=== PATIENT | male | born 1960 | race African-American/Black ===

== ENCOUNTER 2019-03-11 09:55 | Inpatient (IN) ==
[2019-03-11 11:32] LABS: BASO# 0.01 X1000 (0.0-0.2); BASO% 0.4 % (0.0-0.8); EOS# 0.04 X1000 (0.0-0.7); EOS% 1.4 % (0.0-10.0); HEMATOCRIT 35.1 % (42.0-52.0); HEMOGLOBIN 11.4 g/dL (14.0-18.0); LYMPH# 1.55 X1000 (1.2-3.4); LYMPH% 55.6 % (20.5-51.1); MCH 33.1 PG (27-31); MCHC 32.5 g/dL (33-37); MONO# 0.27 X1000 (0.11-0.59); MONO% 9.7 % (1.7-9.3); NEUT# 0.92 X1000 (1.4-6.5); NEUT% 32.9 % (42.2-75.2); PLT 74 X1000 (130-400); RBC 3.44 XMIL (4.7-6.1); RDW 12.6 % (11.5-14.5); WBC 2.79 X1000 (4.8-10.8)
--- NOTE | 2019-03-11 11:37 | Diag Imaging Result Doc PS360 ---
EXAM: CT HEAD W/O CONTRAST 03/11/2019 HISTORY: Altered Mental Status TECHNIQUE: This exam was performed using automated exposure control, adjustment of mA or kV according to patient size, and/or use of iterative reconstruction technique. COMMENT: There is mild generalized cerebral atrophy. There is a focal area of lucency in the mid cheryl. There is some patchy lucency in the periventricular white matter particularly adjacent to the frontal horn on the left. Compared to 06/16/2017 and these abnormalities were not present previously. There is no evidence of bleed or abnormal extra-axial fluid collection. The calvarium is intact. There is fluid in the left sphenoid sinus and some mucosal thickening is present in ethmoid air cells bilaterally. IMPRESSION: Worsened chronic ischemic changes including a lacune in the cheryl. Surrounding the chronic changes further evaluation with MRI may be desirable. Electronically signed by Ariel Ken 03/11/2019 11:34 AM
[2019-03-11 12:00] LABS: AGAP 10; ALB/GLOB RATIO 1.5; ALBUMIN 3.8 g/dL (3.5-5.0); ALKALINE PHOSPHATASE 120 U/L (32-122); BUN 5 mg/dL (8-22); CALCIUM 9.2 mg/dL (8.8-10.2); CHLORIDE 99 mmol/L (98-107); COSMO 279; CREATININE 0.7 mg/dL (0.7-1.2); ESTIMATED GFR > 60; GLUCOSE 133 mg/dL (70-104); GOT 38 U/L (10-34); GPT 18 U/L (10-44); POTASSIUM 3.9 mmol/L (3.5-5.1); SODIUM 140 mmol/L (136-145); TCO2 31 mmol/L (25-35); TOTAL BILIRUBIN 1.03 mg/dL (0.20-1.00); TOTAL PROTEIN 6.4 g/dL (6.3-8.3)
--- NOTE | 2019-03-11 13:16 | Diag Imaging Result Doc PS360 ---
EXAM: CHEST-PORTABLE HISTORY: new admit TECHNIQUE: Single view COMPARISON: 10/18/2018 FINDINGS: The lungs are hyperexpanded. The heart is not enlarged. The vessels are small. There are no infiltrates. No effusion identified. IMPRESSION: Emphysema Electronically signed by Rajan Mo 03/11/2019 1:13 PM
[2019-03-11 13:59] LABS: URINE SOURCE CLEAN CATCH
--- NOTE | 2019-03-11 14:03 | Diag Imaging Result Doc PS360 ---
EXAM: MRI BRAIN W/WO CONTRAST 03/11/2019 HISTORY: ams TECHNIQUE: T1 sagittal, axial and post gadolinium-enhanced axial with coronal reformation, axial T2, FLAIR, DWI and coronal gradient echo. COMMENT: There is a lacune present in the cheryl measuring over 12 mm in size in the sagittal dimension. There are patchy periventricular white matter changes and punctate areas of increased T2-weighted signal intensity in the subcortical white matter particularly in the posterior frontal and parietal convexities on the left. There is no evidence of bleed or abnormal extra-axial fluid collection. Compared to the previous study of 02/02/2015 the pontine lacune was not previously present and the periventricular and subcortical white matter changes are worse. There is no evidence of restricted diffusion. There is mucosal thickening and enhancement present in both maxillary sinuses and the right maxillary sinus is nearly completely opacified. There is some mucosal thickening in some of the anterior ethmoid air cells bilaterally. IMPRESSION: Chronic ischemic changes which have worsened since 02/02/2015. Bilateral maxillary sinusitis. Electronically signed by Ariel Ken 03/11/2019 2:00 PM
--- NOTE | 2019-03-11 14:05 | Diag Imaging Result Doc PS360 ---
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 There is no evidence of aneurysm. There is no evidence of major branch occlusion. There is better demonstration of more peripheral branches in the distribution of the left middle cerebral compared to the right. IMPRESSION: No evidence of aneurysm or major branch occlusion. Electronically signed by Ariel Ken 03/11/2019 2:03 PM
[2019-03-11 14:06] LABS: BILIRUBIN URINE NEGATIVE (NEGATIVE); BLOOD URINE NEGATIVE (NEGATIVE); COLOR YELLOW; GLUCOSE URINE NEGATIVE (NEGATIVE); KETONE URINE NEGATIVE (NEGATIVE); LEUKOCYTES URINE NEGATIVE (NEGATIVE); NITRITE URINE NEGATIVE (NEGATIVE); PROTEIN URINE NEGATIVE (NEGATIVE); TURBIDITY URINE CLEAR (CLEAR); UROBILINOGEN URINE 3 mg/dL (NORMAL)
[2019-03-11 14:08] LABS: UR EPITHELIAL CELLS <10 /HPF (<10); URINE BACTERIA NEGATIVE /HPF; URINE RBC <10 /HPF (<10); URINE WBC <10 /HPF (<10)
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
[2019-03-11 14:20] LABS: UR AMPHETAMINES QUAL NONE DETECTED (NONE DETECT); UR BARBITUATES QUAL NONE DETECTED (NONE DETECT); UR BENZODIAZEPIN QUAL NONE DETECTED (NONE DETECT); UR CANNABINOIDS QUAL PRESUMPTIVE POSITIVE (NONE DETECT); UR COCAINE QUAL NONE DETECTED (NONE DETECT); UR METHADONE QUAL NONE DETECTED (NONE DETECT); UR OPIATES QUAL NONE DETECTED (NONE DETECT); UR OXYCODONE QUAL NONE DETECTED (NONE DETECT); UR PCP QUAL NONE DETECTED (NONE DETECT)
[2019-03-11 14:31] LABS: URINE CASTS NONE SEEN; URINE CRYSTALS NONE SEEN; URINE SMALL ROUND CELLS TRANS PRESENT; URINE YEAST NONE SEEN
[2019-03-11] MEDS ORDERED: M.V.I.-12 10 ML, FOLIC ACID 1 MG, MAGNESIUM SULFATE 1 GM, THIAMINE 100 MG in NS 1,000 ML IV ONE (14:39)
[2019-03-11] MEDS: LIBRIUM PO SCH ×2 (15:30→21:00)
[2019-03-11] MEDS ORDERED: ATIVAN IV PRN (17:21)
[2019-03-11] MEDS ORDERED: ZOFRAN IV PRN (17:21)
[2019-03-11] MEDS: NS 1,000 ML IV SCH (18:09)
[2019-03-11] MEDS: HUMALOG SUBQ SCH ×2 (18:10→21:59)
[2019-03-11 19:04] LABS: AGAP 8; ALB/GLOB RATIO 1.4; ALBUMIN 3.3 g/dL (3.5-5.0); ALKALINE PHOSPHATASE 90 U/L (32-122); BUN 5 mg/dL (8-22); CALCIUM 8.4 mg/dL (8.8-10.2); CHLORIDE 101 mmol/L (98-107); COSMO 275; CREATININE 0.6 mg/dL (0.7-1.2); ESTIMATED GFR > 60; GLUCOSE 144 mg/dL (70-104); GOT 35 U/L (10-34); GPT 17 U/L (10-44); POTASSIUM 3.6 mmol/L (3.5-5.1); SODIUM 138 mmol/L (136-145); TCO2 29 mmol/L (25-35); TOTAL BILIRUBIN 0.84 mg/dL (0.20-1.00); TOTAL PROTEIN 5.7 g/dL (6.3-8.3)
--- NOTE | 2019-03-11 19:49 | HISTORY AND PHYSICAL ---
PRIMARY CARE PROVIDER: Edward Clinton MD CHIEF COMPLAINT: Audiovisual hallucinations. HISTORY OF PRESENT ILLNESS: Mr. Bauer is a 58-year-old male who carries a past medical history of chronic alcoholism, coronary artery disease, diabetes mellitus type 2, hyperlipidemia. He reported his last drink was a pint of vodka yesterday around 1700. He reports he wants help for his alcohol. He states that his told him that he saw people walking down the street last night when no one was there. He was sitting on the front porch talking to a nephew that was not there either. His is currently not at the bedside at this time. She went to go get dinner and take her blood pressure medications. He reports he has had some medication changes. He does not know what they are. He reports he has been taken off some and back on some. He has had some nausea, 4 episodes of vomiting over the last 2 weeks. They have all been liquid. He has had the shakes and chills. No appetite. He reports he does smoke marijuana for that. Workup in the ED was essentially unremarkable. Head CT did show worsening chronic ischemic changes. Recommended evaluation with MRI. Brain MRI just showed chronic ischemic changes that have worsened since February 2015 and bilateral maxillary sinusitis. The patient has been admitted to the medical telemetry floor for altered mental status, possible alcohol withdrawal. We ruled out CVA. PAST MEDICAL HISTORY: Coronary artery disease, diabetes mellitus, hyperlipidemia, chronic alcoholism. PAST SURGICAL HISTORY: Coronary stent. ALLERGIES: No known drug allergies. HOME MEDICATIONS: 1. Aspirin 81 mg p.o. daily. 2. Lipitor 40 mg p.o. daily. 3. Cardizem CD 360 mg p.o. daily. 4. Fenofibrate 130 mg p.o. daily. 5. Gabapentin 300 mg p.o. b.i.d. 6. Isosorbide Mononitrate 60 mg p.o. daily. 7. Metoprolol 25 mg p.o. daily. 8. Prilosec 40 mg p.o. daily. 9. Zoloft 100 mg p.o. daily. 10. Flomax 0.4 mg p.o. b.i.d. 11. Trazodone 50 mg p.o. at bedtime, folic acid 1 mg p.o. daily, multivitamin 1 tab p.o. daily. SOCIAL HISTORY: The patient is a half-pack taper per day smoker. He has done so for 30+ years. He does smoke marijuana on occasion for appetite. He drinks a pint of whiskey. He denies any other illicit drug use. FAMILY HISTORY: No coronary disease. REVIEW OF SYSTEMS: Twelve-point review of systems completely negative except for those mentioned in HPI. PHYSICAL EXAMINATION: VITAL SIGNS: Temperature is 99.2 degrees, heart rate 106, respirations 18, blood pressure 131/91. O2 is 99% on room air. GENERAL: Mr. Bauer is a cooperative 58-year-old male who is sitting up in the bed in no acute distress. HEENT: Atraumatic, normocephalic. PERRL. NECK: Supple trachea midline. CARDIOVASCULAR: S1, S2 appreciated. RESPIRATORY: Lung sounds restrictive, but no wheezes, rales, or rhonchi. GASTROINTESTINAL: Abdomen soft, nontender, nondistended. Positive bowel sounds 4 quadrants. SKIN: Appears to be warm, dry, and intact. NEUROLOGIC: He is awake. He is alert. He is oriented x4. He follows commands. He moves all extremities. He is answering questions appropriately. DIAGNOSTIC DATA: Per HPI. LABORATORY DATA: White count 2, hemoglobin and hematocrit 11 and 35, platelet count 74,000. Sodium 140, potassium 3.9, BUN 5, creatinine 0.7, blood glucose is 133, T bilirubin 1.03, AST 38 urinalysis is clear. Toxicology screen positive for cannabinoids. Serum alcohol level was 0. ASSESSMENT AND PLAN: 1. Cerebrovascular accident ruled out with a head CT and brain MRI. 2. Altered mental status. Reported hallucinations visual and auditory, possible alcohol withdrawal versus Wernicke encephalopathy. We will monitor him closely. We will place him on Librium and p.r.n. Ativan. Frequent neurological checks. Monitor him for delirium tremens, banana bag daily. Electrolytes are currently stable. 3. Nausea and vomiting. We will continue with antiemetics. 4. Diabetes mellitus type 2. The patient is diet controlled. We will place him on sliding scale and pattern blood sugars. 5. Hyperlipidemia. Continue home regimen. 6. Coronary artery disease status post stenting. Patient is not complaining of any chest pain. 7. We will check vitamin B12, folate, magnesium, phosphorus, continue with banana bag with folic acid and multivitamin and thiamine daily. A full liquid diet for now. 8. Further recommendation to follow physician evaluation, laboratory and diagnostic data. Dictated by MANDY Sandoval for Fabian Hancock MD cc: MD Edward Sanchez MD
--- NOTE | 2019-03-11 20:54 | HISTORY AND PHYSICAL ---
ADDENDUM: I have seen and examined Mr. Bauer today. Mr. Bauer presented because of altered mental status associated with hallucination, visual and auditory. He said this morning he woke up and he was just talking to his cousin, addressing his cousin when he was not there, and he was seeing people on the street that were not there. He came to the emergency room where he was evaluated. Imaging studies have been done including a CT scan of the head, which shows worsening chronic ischemic changes including lacunae in the cheryl. An MRI of the brain showed chronic ischemic changes, which have worsened, bilateral maxillary sinusitis, and MRA showed no evidence of aneurysm or major branch occlusion. PHYSICAL EXAMINATION: VITAL SIGNS: Shows a blood pressure of 131/91, pulse 103, respirations 18, temperature is 99.2 degrees. GENERAL: Mr. Bauer is breathing ambient air. He Looks very fidgety with residual tremors. Otherwise, this physical exam only shows remarkably an undernourished gentleman with a BMI of 17.5. ADMISSION DIAGNOSES: 1. Altered mental status associated with acute hallucinations, most likely related to alcohol withdrawal with cannabis toxicity. 2. Alcohol use and abuse. 3. Pancytopenia of unclear etiology presumably from underlying alcohol and possible cirrhosis of the liver. 4. Clinical volume depletion. 5. Chronic ischemic microvascular changes in the brain noted. PLAN: We are going to admit Mr. Bauer, continue with a banana bag and vitamin replacement, hydrate him overnight, get physical therapy to evaluate him. He has been started on Librium and Ativan p.r.n. We will re-evaluate him in the morning and make further recommendations. Please refer to the details of the history and physical that has been dictated in the chart by the [employer]. cc: Fabian Hancock MD [facility], [place]
[2019-03-12] MEDS: LIBRIUM PO SCH ×4 (06:09→23:41)
[2019-03-12] MEDS: HUMALOG SUBQ SCH ×4 (06:12→23:41)
[2019-03-12] MEDS: NS 1,000 ML IV SCH (06:40)
[2019-03-12 07:44] LABS: PROTIME 13.3 Seconds (11.0-16.0)
[2019-03-12 07:48] LABS: BASO# 0.01 X1000 (0.0-0.2); BASO% 0.4 % (0.0-0.8); EOS# 0.04 X1000 (0.0-0.7); EOS% 1.8 % (0.0-10.0); HEMATOCRIT 31.1 % (42.0-52.0); LYMPH# 1.21 X1000 (1.2-3.4); LYMPH% 53.8 % (20.5-51.1); MCH 32.8 PG (27-31); MCHC 32.2 g/dL (33-37); MONO# 0.21 X1000 (0.11-0.59); MONO% 9.3 % (1.7-9.3); MPV 11.4 FL (7.4-10.4); NEUT# 0.78 X1000 (1.4-6.5); NEUT% 34.7 % (42.2-75.2); PLT 72 X1000 (130-400); RBC 3.05 XMIL (4.7-6.1); RDW 12.7 % (11.5-14.5); WBC 2.25 X1000 (4.8-10.8)
[2019-03-12] MEDS: VITAMIN B-1 PO SCH (09:01)
[2019-03-12] MEDS: FOLIC ACID PO SCH (09:01)
[2019-03-12] MEDS: THERA M PLUS PO SCH (09:01)
--- NOTE | 2019-03-12 16:52 | Diag Imaging Result Doc PS360 ---
EXAM: US ABDOMEN-COMPLETE INDICATION: cirrhosis COMPARISON: 06/20/2014 FINDINGS: The gallbladder appears normal with no stones, wall thickening, or pericholecystic fluid. The common bile duct is normal in diameter. Sonographic Gonzáles's sign was reported to be negative. The liver echotexture is somewhat heterogeneous and overall increased. This could indicate hepatic steatosis or cirrhosis. No discrete hepatic mass is identified. Portal venous flow is hepatopetal. The visualized pancreas is unremarkable. The visualized aorta and IVC are grossly unremarkable. The spleen is unremarkable. There is a small right renal cyst. The kidneys are unremarkable, otherwise. IMPRESSION: Heterogeneous and overall increased liver echotexture, which could indicate hepatic steatosis and/or cirrhosis. No discrete hepatic mass is identified. Electronically signed by Vin Maurer 03/12/2019 4:49 PM
[2019-03-12] MEDS: M.V.I.-12 10 ML, FOLIC ACID 1 MG, MAGNESIUM SULFATE 1 GM, THIAMINE 100 MG in NS 1,000 ML IV SCH (17:44)
--- NOTE | 2019-03-12 20:40 | PROGRESS NOTE ---
DATE: 03/12/2019 SUBJECTIVE: This morning Mr. Bauer refers to be doing a lot better. He thinks the shaking has significantly improved, and he is not having any more hallucinations. OBJECTIVE: Vital signs: Blood pressure is 138/96, pulse of 72, respirations 18, temperature is 98.0 degrees. General Examination: Mr. Bauer is a 58-year-old gentleman. He was in bed, no distress. HEENT: Mucosa is pink and moist. Anicteric. Acyanotic. Neck: Supple. Chest: Good air entry bilateral. There are no crepitations, no rhonchi. Cardiovascular: Regular rate and rhythm. No murmurs, no rubs, no gallops. Gastrointestinal: Abdomen is soft, nontender. Bowel sounds present. Extremities: No pedal edema. Central nervous system: Patient is awake, alert. He looks less anxious and no tremors. LABORATORY DATA: WBC is 2.25, hemoglobin is 10.0, platelet count of 72,000. Chemistry is also reviewed and unremarkable. IMAGING: Ultrasound of the abdomen does show heterogeneous and overall increased liver echotexture indicative of hepatic steatosis and/or cirrhosis of the liver. ASSESSMENT: 1. Altered mental status on presentation associated with acute hallucinations, most likely due to alcohol withdrawal versus cannabis intoxication. This morning Mr. Bauer refers to be doing a lot better. No more hallucinations. His mentation is clear and is back to his baseline. 2. Alcohol use and abuse. Patient has been counseled. 3. Pancytopenia, most likely due to alcohol abuse and cirrhosis of the liver. 4. Hepatic steatosis with cirrhosis on imaging noted. The patient has been notified and advised that a possible etiology is alcohol and that he needs to desist from alcohol use. 5. Chronic ischemic microvascular changes in the brain imaging noted. 6. Clinical volume depletion, improved. PLAN: In general, I think Mr. Bauer is doing a lot better pending placement for alcohol-related rehabilitation. cc: Fabian Hancock MD
[2019-03-13] MEDS: NS 1,000 ML IV SCH ×3 (04:32→09:46)
[2019-03-13] MEDS: LIBRIUM PO SCH ×2 (04:47→05:31)
[2019-03-13] MEDS: HUMALOG SUBQ SCH ×2 (06:12→11:25)
[2019-03-13 07:34] LABS: HEMATOCRIT 29.9 % (42.0-52.0); HEMOGLOBIN 9.6 g/dL (14.0-18.0); MCH 33.6 PG (27-31); MCHC 32.1 g/dL (33-37); MCV 104.5 FL (81-99); MPV 10.5 FL (7.4-10.4); RBC 2.86 XMIL (4.7-6.1); RDW 12.6 % (11.5-14.5); WBC 2.25 X1000 (4.8-10.8)
[2019-03-13 07:48] LABS: AGAP 9; ALB/GLOB RATIO 1.4; ALBUMIN 2.9 g/dL (3.5-5.0); ALKALINE PHOSPHATASE 93 U/L (32-122); BUN 4 mg/dL (8-22); CALCIUM 8.5 mg/dL (8.8-10.2); CHLORIDE 107 mmol/L (98-107); COSMO 279; CREATININE 0.6 mg/dL (0.7-1.2); ESTIMATED GFR > 60; GLUCOSE 108 mg/dL (70-104); GOT 19 U/L (10-34); GPT 13 U/L (10-44); MAGNESIUM 1.7 mg/dL (1.5-2.7); PHOSPHORUS 3.2 mg/dL (2.7-4.5); POTASSIUM 3.4 mmol/L (3.5-5.1); SODIUM 141 mmol/L (136-145); TCO2 25 mmol/L (25-35); TOTAL BILIRUBIN 0.46 mg/dL (0.20-1.00)
[2019-03-13] MEDS: M.V.I.-12 10 ML, FOLIC ACID 1 MG, MAGNESIUM SULFATE 1 GM, THIAMINE 100 MG in NS 1,000 ML IV SCH (09:45)
[2019-03-13] MEDS: VITAMIN B-1 PO SCH (09:46)
[2019-03-13] MEDS: THERA M PLUS PO SCH (09:46)
[2019-03-13] MEDS: FOLIC ACID PO SCH (09:46)
[2019-03-13 11:29] VITALS: BP 133/94
--- NOTE | 2019-03-14 17:11 | DISCHARGE SUMMARY ---
ADMISSION DATE: 03/11/2019 DISCHARGE DATE: 03/13/2019 DISPOSITION: Is home. FOLLOW-UP: Will be with Dr. Clinton and Dr. Worthington. CONSULTATION DURING THIS ADMISSION: None. INVASIVE PROCEDURES DONE DURING THIS ADMISSION: None. IMAGING STUDIES OF SIGNIFICANCE: 1. A CT scan of the chest did show worsening chronic ischemic changes. 2. An MRI of the brain showed chronic ischemic changes, bilateral sinusitis. No acute stroke seen. 3. Chest x-ray showed emphysema. 4. An MRA of the brain: No evidence of aneurysm. 5. Ultrasound of the abdomen showed hepatic steatosis and/or cirrhosis of the liver. ADMISSION DIAGNOSES: 1. Altered mental status with hallucination, rule out cerebrovascular accident. 2. Nausea and vomiting. 3. Diabetes mellitus. 4. Dyslipidemia. 5. Coronary artery disease. DIAGNOSES AT THE TIME OF DISCHARGE: 1. Altered mental status on presentation associated with acute hallucination secondary to alcohol withdrawal and/or cannabis intoxication or both. 2. Alcohol use and abuse. 3. Pancytopenia secondary to alcohol use and cirrhosis of the liver. 4. Hepatic steatosis and/or cirrhosis of the liver on imaging. 5. Chronic ischemic microvascular changes on brain imaging. 6. Clinical volume depletion. 7. Dyslipidemia. DISCHARGE MEDICATIONS: 1. Omeprazole 40 mg p.o. daily. 2. Diltiazem 360 p.o. daily. 3. Fenofibrate. 4. Sertraline 100 mg p.o. daily. 5. Imdur 60 mg p.o. daily. 6. Gabapentin 300 b.i.d. 7. Aspirin 81 mg p.o. daily. 8. Folic acid 1 mg p.o. daily. 9. Atorvastatin 40 mg p.o. daily. 10. Multivitamin. 11. Tamsulosin 0.4 p.o. daily. 12. Trazodone 50 mg p.o. at bedtime. 13. Metoprolol 25 mg daily. 14. Thiamine 100 mg p.o. daily. PRESENTING COMPLAINT: Hallucination. HISTORY OF PRESENTING COMPLAINT: Mr. Bauer is a 58-year-old gentleman who is known to have chronic alcoholism, coronary artery disease, diabetes type 2, who reports drinking heavily, vodka every single day. He came in after he drank yesterday at about 1700 the day prior to presentation. On the day of presentation, he started having some mild audio and visual hallucinations. The family brought him. He was evaluated and admitted for further medical care. HOSPITAL COURSE: Mr. Bauer was evaluated. His urine toxicology was also positive for cannabis. He was showing evidence of possible alcohol withdrawal as well, so he was started on the alcohol withdrawal protocol, which he responded very well to. During the hospital course, the hallucination completely resolved. His tremors also got remarkably improved. He was found to be pancytopenic. Ultrasound of the abdomen was done because of his history of alcohol abuse and the ultrasound does reveal possibility of cirrhosis of the liver/hepatic steatosis. Mr. Bauer has been made aware and he has been advised to follow up with GI for frequent evaluations of the cirrhosis. Obviously, he has been advised on alcohol cessation. This morning, he refers to do well. Social Work has evaluated him and has given him resources for alcohol rehabilitation. We think Mr. Bauer is now clinically stable for discharge. He is not showing any more withdrawal symptoms. He is not having any tremors and his hallucinations are resolved. His current vitals at the time of discharge, blood pressure is 133/94, pulse of 77 respirations 15, temperature is 97.9 degrees. He is saturating 100% on room air. TIME SPENT FOR DISCHARGE: Is 38 minutes. cc: MD Gaby Sanchez Dr.
== END 2019-03-13 12:57 | disposition home or self-care (01) | DRG 897 ==
LOC: ED 09:55 → 3N 16:26
PROVIDERS: ATTEND Internal Medicine

== ENCOUNTER 2019-03-21 15:13 | Inpatient (IN) ==
[2019-03-21] MEDS ORDERED: ATARAX PO PRN (17:47)
[2019-03-21] MEDS ORDERED: BENTYL PO PRN (17:47)
[2019-03-21] MEDS ORDERED: IMODIUM PO PRN (17:47)
[2019-03-21] MEDS ORDERED: SALINE LOCK IV FLUID XX ONE (17:47)
[2019-03-21] MEDS ORDERED: DESYREL PO PRN (17:47)
[2019-03-21] MEDS ORDERED: ZOFRAN IV PRN (17:47)
[2019-03-21] MEDS ORDERED: MAALOX PLUS LIQUID PO PRN (17:47)
[2019-03-21] MEDS ORDERED: NICODERM PATCH TD PRN (17:47)
[2019-03-21] MEDS ORDERED: DULCOLAX PR PRN (17:47)
[2019-03-21] MEDS ORDERED: MOTRIN PO PRN (17:47)
[2019-03-21] MEDS ORDERED: ZOFRAN ODT PO PRN (17:47)
[2019-03-21] MEDS ORDERED: TUBERSOL ID ONE (17:47)
[2019-03-21] MEDS ORDERED: ROBAXIN PO PRN (17:47)
[2019-03-21] MEDS ORDERED: TYLENOL PO PRN (17:47)
[2019-03-21] MEDS ORDERED: D5W 1,000 ML IV PRN (17:47)
[2019-03-21] MEDS ORDERED: PHENOBARBITAL IV PRN (17:47)
[2019-03-21] MEDS ORDERED: SENOKOT PO PRN (17:47)
[2019-03-21] MEDS ORDERED: SEROQUEL PO PRN (17:47)
[2019-03-21] MEDS ORDERED: LIBRIUM PO SCH (18:00)
[2019-03-21 18:14] LABS: HEMOGLOBIN 10.9 g/dL (14.0-18.0); MCH 32.4 PG (27-31); MCHC 31.1 g/dL (33-37); MCV 104.2 FL (81-99); MPV 9.4 FL (7.4-10.4); RBC 3.36 XMIL (4.7-6.1); RDW 13.4 % (11.5-14.5); WBC 3.5 X1000 (4.8-10.8)
[2019-03-21 18:23] LABS: AMYLASE 57 U/L (20-200); LIPASE 30 U/L (13-60)
[2019-03-21 18:26] LABS: AGAP 15; ALBUMIN 3.6 g/dL (3.5-5.0); ALKALINE PHOSPHATASE 98 U/L (32-122); BUN 6 mg/dL (8-22); CALCIUM 8.7 mg/dL (8.8-10.2); CHLORIDE 103 mmol/L (98-107); COSMO 283; CREATININE 0.6 mg/dL (0.7-1.2); ESTIMATED GFR > 60; GLUCOSE 134 mg/dL (70-104); GOT 18 U/L (10-34); GPT 10 U/L (10-44); POTASSIUM 4.2 mmol/L (3.5-5.1); SODIUM 142 mmol/L (136-145); TCO2 24 mmol/L (25-35); TOTAL PROTEIN 6.4 g/dL (6.3-8.3)
[2019-03-21 18:38] LABS: INR 0.92; PROTIME 12.8 Seconds (11.0-16.0)
[2019-03-21 18:39] LABS: URINE SOURCE VOIDED
[2019-03-21 18:44] LABS: BILIRUBIN URINE NEGATIVE (NEGATIVE); BLOOD URINE NEGATIVE (NEGATIVE); COLOR YELLOW; GLUCOSE URINE 150 mg/dL (NEGATIVE); KETONE URINE NEGATIVE (NEGATIVE); LEUKOCYTES URINE NEGATIVE (NEGATIVE); NITRITE URINE NEGATIVE (NEGATIVE); PH URINE 6.5; PROTEIN URINE NEGATIVE (NEGATIVE); SP GRAVITY URINE 1.016; TURBIDITY URINE CLEAR (CLEAR); UROBILINOGEN URINE 2 mg/dL (NORMAL)
[2019-03-21 18:52] LABS: UR AMPHETAMINES QUAL NONE DETECTED (NONE DETECT); UR BARBITUATES QUAL NONE DETECTED (NONE DETECT); UR BENZODIAZEPIN QUAL PRESUMPTIVE POSITIVE (NONE DETECT); UR CANNABINOIDS QUAL PRESUMPTIVE POSITIVE (NONE DETECT); UR COCAINE QUAL NONE DETECTED (NONE DETECT); UR METHADONE QUAL NONE DETECTED (NONE DETECT); UR METHAMPHETAMINE QUAL NONE DETECTED (NONE DETECT); UR OPIATES QUAL NONE DETECTED (NONE DETECT); UR OXYCODONE QUAL NONE DETECTED (NONE DETECT); UR PCP QUAL NONE DETECTED (NONE DETECT); UR PROPOXYPHENE QUAL NONE DETECTED (NONE DETECT); UR TCA QUAL NONE DETECTED (NONE DETECT)
[2019-03-21 18:53] LABS: UR EPITHELIAL CELLS <10 /HPF (<10); URINE BACTERIA 1+ /HPF; URINE YEAST NONE SEEN
[2019-03-21 18:54] LABS: URINE CRYSTALS NONE SEEN; URINE SMALL ROUND CELLS NONE SEEN
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
[2019-03-21] MEDS: NEURONTIN PO SCH (21:27)
[2019-03-21] MEDS: LIBRIUM PO SCH (21:27)
[2019-03-21] MEDS: FLOMAX PO SCH (21:27)
[2019-03-22] MEDS: LIBRIUM PO SCH ×4 (02:00→18:34)
[2019-03-22] MEDS: PROTONIX PO SCH (06:25)
[2019-03-22] MEDS ORDERED: PRILOSEC PO SCH (07:30)
[2019-03-22] MEDS ORDERED: M.V.I.-12 10 ML, FOLIC ACID 1 MG, MAGNESIUM SULFATE 1 GM, THIAMINE 100 MG in NS 1,000 ML IV ONE (08:00)
[2019-03-22] MEDS: FLOMAX PO SCH ×2 (08:17→20:36)
[2019-03-22] MEDS: CARDIZEM CD PO SCH (08:17)
[2019-03-22] MEDS: IMDUR PO SCH (08:17)
[2019-03-22] MEDS: FOLIC ACID PO SCH (08:17)
[2019-03-22] MEDS: THERA M PLUS PO SCH (08:18)
[2019-03-22] MEDS: NEURONTIN PO SCH ×2 (08:18→20:36)
[2019-03-22] MEDS: TOPROL XL PO SCH (08:18)
[2019-03-22] MEDS: VITAMIN B-1 PO SCH (08:18)
--- NOTE | 2019-03-22 18:14 | PROGRESS NOTE ---
DATE: 03/22/2019 SUBJECTIVE: Patient has no new complaints. Notes that he is starting to feel a little bit stronger. He was able to assist a little bit more getting in a chair. OBJECTIVE: Vital Signs: Temperature 98 degrees, pulse 87, respiratory rate 18, BP 144/96. General: Patient is awake, alert. He is in no distress. HEENT: Normocephalic. Neck: Supple. Cardiovascular: Regular rate. No murmurs. Chest: Clear, nonlabored. Abdomen: Soft, nondistended. Neurologic: No focal changes. Tremors have improved. ASSESSMENT: 1. Nausea and vomiting. 2. Abdominal pain. 3. Myalgias. 4. Paresthesias. 5. Tremors. 6. Alcohol abuse withdrawal and stabilization. PLAN: We are going to keep the patient in the hospital and continue to follow. Continue Librium, wean as tolerated. cc: Yoseph Blue MD MTDD
[2019-03-23] MEDS: LIBRIUM PO SCH ×4 (00:33→18:13)
[2019-03-23] MEDS: PROTONIX PO SCH (06:05)
[2019-03-23] MEDS: TOPROL XL PO SCH (08:51)
[2019-03-23] MEDS: NEURONTIN PO SCH ×2 (08:51→20:26)
[2019-03-23] MEDS: VITAMIN B-1 PO SCH (08:51)
[2019-03-23] MEDS: IMDUR PO SCH (08:51)
[2019-03-23] MEDS: FLOMAX PO SCH ×2 (08:51→20:26)
[2019-03-23] MEDS: FOLIC ACID PO SCH (08:51)
[2019-03-23] MEDS: CARDIZEM CD PO SCH (08:51)
[2019-03-23] MEDS: THERA M PLUS PO SCH (08:51)
[2019-03-24] MEDS: LIBRIUM PO SCH ×4 (00:06→20:57)
[2019-03-24] MEDS: PROTONIX PO SCH (06:32)
--- NOTE | 2019-03-24 07:31 | PROGRESS NOTE ---
DATE: 03/24/2019 SUBJECTIVE: Patient without any new complaints. Slept better. Notes that he is eating better. PHYSICAL EXAMINATION: Vital Signs: Reviewed. Temp 97.6 degrees, pulse 79, respiratory rate 18, BP 116/83. General: The patient is in no current respiratory distress. HEENT: Normocephalic. Neck: Supple. CV: Sinus rhythm. Chest: Nonlabored. Abdomen: Nondistended. Extremities: Moves all extremities. Neurologic: No changes. ASSESSMENT: 1. Nausea, vomiting. 2. Abdominal pain. 3. Myalgias. 4. Paresthesias. 5. Paroxysmal sweating. 6. Alcohol abuse, withdrawal, and stabilization. PLAN: Will continue the patient in the hospital. Continue to follow. Continue to wean Librium. Hopefully to rehab on Monday. cc: Yoseph Blue MD
--- NOTE | 2019-03-24 08:18 | PROGRESS NOTE ---
DATE: 03/24/2019 SUBJECTIVE: Patient notes that he is feeling a lot better. Denies any fevers or chills. PHYSICAL EXAMINATION: Vital Signs: Reviewed. Temp 98.4 degrees, pulse 82, respiratory rate 18, BP 109/72. General: Patient is sitting up in the bed, preparing to eat breakfast. He is awake, alert, oriented. He is in no respiratory distress. HEENT: Normocephalic. Neck: Supple. Cardiovascular: Regular rate. No murmurs. Chest: Clear. Abdomen: Soft. Extremities: Moves all extremities. Neurologic: No changes. ASSESSMENT: 1. Nausea and vomiting. 2. Abdominal pain. 3. Myalgias. 4. Paresthesias. 5. Paroxysmal sweating. 6. Alcohol abuse withdrawal and stabilization. PLAN: We will continue patient in the hospital. Continue to monitor. We will continue to wean Librium. Hopefully he will be able to discharge to rehab in the a.m. cc: Yoseph Blue MD
[2019-03-24] MEDS: THERA M PLUS PO SCH (09:13)
[2019-03-24] MEDS: IMDUR PO SCH (09:13)
[2019-03-24] MEDS: TOPROL XL PO SCH (09:13)
[2019-03-24] MEDS: FOLIC ACID PO SCH (09:13)
[2019-03-24] MEDS: NEURONTIN PO SCH ×2 (09:13→20:57)
[2019-03-24] MEDS: CARDIZEM CD PO SCH (09:13)
[2019-03-24] MEDS: VITAMIN B-1 PO SCH (09:13)
[2019-03-24] MEDS: FLOMAX PO SCH ×2 (09:13→20:57)
[2019-03-25] MEDS: LIBRIUM PO SCH (04:16)
[2019-03-25] MEDS: PROTONIX PO SCH (06:14)
[2019-03-25 07:51] VITALS: BP 118/90
[2019-03-25] MEDS: NEURONTIN PO SCH (09:21)
[2019-03-25] MEDS: THERA M PLUS PO SCH (09:21)
[2019-03-25] MEDS: TOPROL XL PO SCH (09:21)
[2019-03-25] MEDS: CARDIZEM CD PO SCH (09:21)
[2019-03-25] MEDS: FOLIC ACID PO SCH (09:21)
[2019-03-25] MEDS: IMDUR PO SCH (09:21)
[2019-03-25] MEDS: VITAMIN B-1 PO SCH (09:21)
[2019-03-25] MEDS: FLOMAX PO SCH (09:21)
--- NOTE | 2019-03-26 07:26 | DISCHARGE SUMMARY ---
ADMISSION DATE: 03/21/2019 DISCHARGE DATE: 03/25/2019 DISCHARGE DIAGNOSES: 1. Nausea and vomiting. 2. Abdominal pain. 3. Myalgias. 4. Paresthesias. 5. Tremors. 6. Alcohol withdrawal and stabilization. 7. Chronic diabetes. 8. Known coronary artery disease status post stent. Most recent myocardial infarction in May of 2017. 9. Diabetic neuropathy. 10. Hypertension. CONSULTATIONS: None. PROCEDURES: None. BRIEF HOSPITAL COURSE: Patient is a very pleasant 58-year-old male who presented to the [facility] secondary to alcohol and alcohol withdrawal issues. Thankfully, he had uneventful hospital course. He was continued on his home medications, and maintained on diabetic diet. He had uneventful hospital course. We will place him on a high-dose Librium taper, and wean down as tolerated. DISPOSITION: Patient to be discharged home. Certainly, would prefer further long-term care although patient currently declined. We will follow up outpatient with his primary care. TIME SPENT: Greater than 30 minutes was spent in total care and planning. Discussed with patient he needs to avoid all persons and situations which he has been drinking in the past. He needs life counseling as well as alcohol counseling. Needs to consider a 12 step program such as AA. cc: Yoseph Blue MD
[2019-03-26] MEDS ORDERED: LIBRIUM PO SCH (09:00)
== END 2019-03-25 10:06 | disposition home or self-care (01) | DRG 897 ==
LOC: DIRADM 15:16 → P.MEDSURG 15:37
PROVIDERS: ADMIT Family Medicine; ATTEND Family Medicine